=== PATIENT | female | born 1970 | race Caucasian/White ===

== ENCOUNTER → 2017-06-24 | Outpatient (CLI) | payer OTHER | LOC: MC.RAD 16:27 | DX: Z12.31 Encounter for screening mammogram for malignant neoplasm of breast (principal); N63 Unspecified lump in breast ==

== ENCOUNTER → 2017-07-01 | Outpatient (CLI) | payer OTHER | LOC: MC.RAD 14:00 | DX: N63 Unspecified lump in breast (principal); N60.02 Solitary cyst of left breast ==

== ENCOUNTER → 2018-02-02 | Outpatient (CLI) | payer OTHER | LOC: MC.RAD 12-24 14:40 | DX: Z12.31 Encounter for screening mammogram for malignant neoplasm of breast (principal); Z53.8 Procedure and treatment not carried out for other reasons ==

== ENCOUNTER → 2018-09-10 | Outpatient (CLI) | payer OTHER | LOC: MC.RAD 08-06 17:00 | DX: Z12.31 Encounter for screening mammogram for malignant neoplasm of breast (principal) ==

== ENCOUNTER 2018-11-03 08:55 | Outpatient (RCR) | payer OTHER | END 2019-02-01 | disposition home or self-care (01) | LOC: WSOH | DX: S05.02XA Injury of conjunctiva and corneal abrasion without foreign body, left eye, initial encounter (principal); W26.2XXA Contact with edge of stiff paper, initial encounter; Y92.219 Unspecified school as the place of occurrence of the external cause; Y99.0 Civilian activity done for income or pay; Z79.899 Other long term (current) drug therapy ==

== ENCOUNTER 2019-12-31 08:42 | Day surgery (SDC) | payer OTHER ==
[~2019-12-31] VITALS: Ht 166.4 cm; Wt 131.4 kg
[2019-12-31] MEDS ORDERED: PEPCID 20MG TAB20 MG PO (09:07)
[2019-12-31] MEDS ORDERED: TIROSINT100 MC1 PO (09:08)
[2019-12-31] MEDS ORDERED: PAXIL 20MG20 MG PO (09:09)
[2019-12-31] MEDS ORDERED: MASON NATURAL2000 IU PO (09:09)
[2019-12-31 09:11] VITALS: BP 137/69; PULSE 82; TEMP 98.3
[2019-12-31 10:35] VITALS: BP 131/79; PULSE 72; TEMP 97.7
--- NOTE | 2019-12-31 10:35 | NUR ---
Pt to GI [facility] 3 via cart from [facility]. Pt drowsy. Pt ambulates to recliner with stand by assistance. Warm blanket provided. Muffin and juice provided. Call light within reach. Will continue to monitor.
[2019-12-31 10:50] VITALS: BP 130/62; PULSE 67
--- NOTE | 2019-12-31 10:50 | NUR ---
Pt continues to rest. Pt tolerating food and fluids without difficulties. Will continue to monitor. Call light within reach.
[2019-12-31 11:05] VITALS: BP 125/67; PULSE 76
--- NOTE | 2019-12-31 11:05 | NUR ---
Pt continues to rest. Will continue to monitor. Call light within reach.
--- NOTE | 2019-12-31 11:20 | NUR ---
IV site discontinued with all parts intact. Discharge instructions reviewed. Pt voices understanding. Pt up to dress. Call light within reach.
--- NOTE | 2019-12-31 11:45 | NUR ---
Pt escorted to private car via wheel chair. Pt accompanied home by her .
== END 2019-12-31 11:45 | disposition home or self-care (01) ==
LOC: SDCO 08:42
DX: Z12.11 Encounter for screening for malignant neoplasm of colon (principal); Z83.71 Family history of colonic polyps; K21.9 Gastro-esophageal reflux disease without esophagitis; E07.9 Disorder of thyroid, unspecified; E66.01 Morbid (severe) obesity due to excess calories; G47.33 Obstructive sleep apnea (adult) (pediatric); Z79.899 Other long term (current) drug therapy
CPT/HCPCS: J2704; J7120

== ENCOUNTER → 2020-01-31 | Outpatient (CLI) | payer OTHER ==
[~2020-01-31] MED LIST: MASON NATURAL2000 IU PO; PAXIL 20MG20 MG PO; PEPCID 20MG TAB20 MG PO; TIROSINT100 MC1 PO
== END ==
LOC: MC.RAD 01-12 15:45
DX: Z12.31 Encounter for screening mammogram for malignant neoplasm of breast (principal)

== ENCOUNTER 2020-07-11 17:25 | Emergency (ER) | payer OTHER ==
[~2020-07-11] VITALS: Ht 165.1 cm; Wt 132.7 kg
[2020-07-11 17:53] VITALS: TEMP 98.4
[2020-07-11] MEDS ORDERED: CIPRODEX OT ×2 (20:01)
[2020-07-11 20:07] VITALS: BP 127/82; PULSE 73
[2020-07-12] MEDS ORDERED: CIPRODEX OT (03:04)
== END 2020-07-11 20:08 | disposition home or self-care (01) ==
LOC: COL.ER 17:25
DX: H60.92 Unspecified otitis externa, left ear (principal); E03.9 Hypothyroidism, unspecified; F32.9 Major depressive disorder, single episode, unspecified

== ENCOUNTER → 2021-08-14 | Outpatient (CLI) | payer OTHER ==
[~2021-08-14] MED LIST changes: +CIPRODEX OT
== END ==
LOC: MC.RAD 15:45
DX: Z12.31 Encounter for screening mammogram for malignant neoplasm of breast (principal)

== ENCOUNTER → 2021-08-20 | Outpatient (CLI) | payer OTHER | LOC: MC.RAD 09:53 | DX: R92.8 Other abnormal and inconclusive findings on diagnostic imaging of breast (principal) ==

== ENCOUNTER → 2023-08-29 | Outpatient (CLI) | payer OTHER | LOC: MC.RAD 07:00 | DX: N63.11 Unspecified lump in the right breast, upper outer quadrant (principal); N63.25 Unspecified lump in the left breast, overlapping quadrants ==